=== PATIENT | female | born 1950 | race Two or more races ===

== ENCOUNTER 2018-10-21 11:14 | Outpatient (CLI) | payer OTHER | END 2018-10-21 11:23 | disposition home or self-care (01) | LOC: RAD 501 11:14 | DX: J98.11 Atelectasis (principal) ==

== ENCOUNTER 2019-06-09 11:42 | Outpatient (CLI) | payer OTHER | END 2019-06-09 11:54 | disposition home or self-care (01) | LOC: RAD 11:42 | DX: M75.122 Complete rotator cuff tear or rupture of left shoulder, not specified as traumatic (principal) ==

== ENCOUNTER → 2019-08-23 | Outpatient (CLI) | payer OTHER | END | disposition home or self-care (01) | LOC: RAD 12:40 | DX: J15.4 Pneumonia due to other streptococci (principal) ==

== ENCOUNTER 2019-11-09 10:21 | Outpatient (CLI) | payer OTHER | END 2019-11-09 10:24 | disposition home or self-care (01) | LOC: RAD 10:21 | DX: M54.6 Pain in thoracic spine (principal) ==

== ENCOUNTER 2023-04-29 09:35 | Outpatient (CLI) | payer OTHER | END 2023-04-29 09:47 | disposition home or self-care (01) | LOC: RAD 09:35 | DX: M17.12 Unilateral primary osteoarthritis, left knee (principal); M23.307 Other meniscus derangements, unspecified meniscus, left knee ==

== ENCOUNTER → 2023-05-05 | Outpatient (CLI) | payer OTHER | END | disposition home or self-care (01) | LOC: SONOGRAMA 09:44 | PROVIDERS: ATTEND Internal Medicine Gastroenterology | DX: R16.2 Hepatomegaly with splenomegaly, not elsewhere classified (principal) ==

== ENCOUNTER 2023-08-10 10:45 | Outpatient (CLI) | payer OTHER | END 2023-08-10 10:52 | disposition home or self-care (01) | LOC: SONOGRAMA 10:45 | PROVIDERS: ATTEND Urology | DX: N39.0 Urinary tract infection, site not specified (principal) ==

== ENCOUNTER 2024-09-22 09:49 | Outpatient (CLI) | payer OTHER | END 2024-09-22 09:56 | disposition home or self-care (01) | LOC: RAD 09:49 | DX: S82.002A Unspecified fracture of left patella, initial encounter for closed fracture (principal); M25.569 Pain in unspecified knee ==

== ENCOUNTER 2024-10-07 10:01 | Outpatient (CLI) | payer OTHER | END 2024-10-07 10:07 | disposition home or self-care (01) | LOC: RAD 10:01 | DX: S82.002A Unspecified fracture of left patella, initial encounter for closed fracture (principal); M25.569 Pain in unspecified knee ==

== ENCOUNTER 2025-05-03 08:50 | Outpatient (CLI) | payer OTHER | END 2025-05-03 08:55 | disposition home or self-care (01) | LOC: RAD 08:50 | PROVIDERS: ATTEND Physical Medicine & Rehabilitation Hospice and Palliative Medicine | DX: M54.50 Low back pain, unspecified (principal); M53.3 Sacrococcygeal disorders, not elsewhere classified ==